=== PATIENT | female | born 1965 | race African-American/Black ===

== ENCOUNTER 2022-05-12 14:49 | Inpatient (IN) | payer MEDICAID ==
[~2022-05-12] VITALS: Ht 165.1 cm; Wt 57.6 kg
[2022-05-12] MEDS: ACETAMINOPHEN 325MG TABLET PO STA ×2 (16:02→16:28)
[2022-05-12] MEDS ORDERED: SODIUM CHLORIDE 0.9% 1000ML BAG (SEPSIS BOLUS) IV ONE (16:15)
[2022-05-12] MEDS ORDERED: CEFTRIAXONE 1 G PREMIX 50 ML IV ONE (16:15)
[2022-05-12 16:34] LABS: HEMATOCRIT. 25.6 % (36.0-48.0); HEMOGLOBIN. 7.9 g/dL (12.0-16.0); MEAN CORPUSCULAR HEMOGLOBIN 29.2 pg (28.0-32.0); MEAN CORPUSCULAR VOLUME 94.3 fL (81.0-99.0); MEAN PLATELET VOLUME 8.5 fl (7.4-10.4); PLATELET 152 x1000/uL (130-400); RED BLOOD CELL COUNT 2.72 mill/uL (4.2-5.4)
[2022-05-12] MEDS ORDERED: NOREPINEPHRINE 8 MG in DEXT 5% WATER 242 ML IV STA ×3 (16:36→17:17)
[2022-05-12 16:45] LABS: CHLORIDE 118 mEq/L (98-107)
[2022-05-12] MEDS ORDERED: IBUPROFEN 400MG TABLET PO ONE (17:00)
[2022-05-12 17:10] LABS: D-DIMER 8.99 mg/L FEU (<0.50); INR 1.6; PROTHROMBIN TIME 16.7 sec (9.6-11.0)
[2022-05-12 17:49] LABS: PLATELET ESTIMATE NORMAL
[2022-05-12] MEDS ORDERED: POTASSIUM CHLORIDE INJ 40 MEQ in DEXT 5% WATER 250 ML IV ONE (18:30)
[2022-05-12] MEDS ORDERED: PIPERACILLIN/TAZOBACTAM 3.375GM/50ML PREMIX IV ONE (18:30)
[2022-05-12] MEDS ORDERED: VANCOMYCIN 1G PREMIX 200 ML IV SCH ×2 (18:30→20:00)
[2022-05-12] MEDS ORDERED: KCL 20MEQ/100ML X 2 FOR TOTAL KCL 40MEQ/200ML IV SCH (18:45)
[2022-05-12] MEDS ORDERED: PIPERACILLIN/TAZ 3.375G PREMIX 50 ML IV NR (18:45)
[2022-05-12] MEDS ORDERED: LORAZEPAM 2MG/ML CPJ IV NR (19:30)
[2022-05-12] MEDS ORDERED: DOCUSATE SODIUM 100MG CAPSULE PO PRN (19:45)
[2022-05-12] MEDS ORDERED: NALOXONE HCL 0.4MG/ML VIAL IV PRN (19:45)
[2022-05-12] MEDS ORDERED: LORAZEPAM 0.5MG TABLET PO PRN (19:45)
[2022-05-12] MEDS ORDERED: POTASSIUM CHLORIDE 20MEQ TABLET SR PO NR (19:45)
[2022-05-12] MEDS ORDERED: KCL 20MEQ/100ML PREMIX 100 ML IV NR (19:45)
[2022-05-12] MEDS ORDERED: IPRATROPIUM/ALBUTEROL 0.5-3(2.5)MG/3ML NEB NEB PRN (19:45)
[2022-05-12] MEDS ORDERED: NITROGLYCERIN 0.4MG TABLET SL SL PRN (19:45)
[2022-05-12] MEDS ORDERED: ONDANSETRON HCL 4MG/2ML INJ IV PRN (19:45)
[2022-05-12] MEDS ORDERED: ACETAMINOPHEN 325MG TABLET PO PRN ×2 (19:45)
[2022-05-12] MEDS ORDERED: MAGNESIUM/ALUMINUM HYDROXIDE/SIMETHICONE 30ML UDC PO PRN (19:45)
[2022-05-12] MEDS ORDERED: CLONIDINE 0.1MG TABLET PO PRN (19:45)
[2022-05-12] MEDS ORDERED: PIPERACILLIN/TAZ 3.375G PREMIX 50 ML IV SCH (19:45)
[2022-05-12] MEDS ORDERED: GUAIFENESIN 200MG/10ML SUGAR FREE UDC PO PRN (19:45)
[2022-05-12] MEDS ORDERED: ENOXAPARIN 40MG/0.4ML SYR SUBCUT SCH (20:00)
[2022-05-12] MEDS ORDERED: IOHEXOL-350 100 ML BOTTLE ONE (20:01)
[2022-05-12 20:08] LABS: ETHANOL BLOOD < 10 mg/dL; HDL CHOLESTEROL 32 mg/dL (40-59); T4 FREE 0.97 ng/dL (0.76-1.46); TOTAL IRON BINDING CAPACITY 95 ug/dL (250-450)
[2022-05-12 20:14] LABS: LDL CHOLESTEROL 2 mg/dL (5-100)
[2022-05-12 20:44] LABS: VITAMIN B12 SERUM > 2000.0 pg/mL (211-911)
[2022-05-12] MEDS: ASCORBIC ACID 500 MG TABLET PO SCH (21:02)
[2022-05-12] MEDS: SODIUM CHLORIDE 0.9% 1,000 ML IV SCH (21:05)
[2022-05-12] MEDS: PANTOPRAZOLE SODIUM 40 MG/VIAL IV SCH (21:06)
[2022-05-12 22:38] LABS: CREATINE KINASE MB FRACTION 1.1 ng/mL (0.5-3.6)
[2022-05-12] MEDS: ZOLPIDEM TARTRATE 5MG TABLET PO PRN (23:05)
[2022-05-13] VITALS (50 sets, daily range): BP systolic 51–172; BP diastolic 20–108
[2022-05-13] MEDS ORDERED: NOREPINEPHRINE 8 MG in DEXT 5% WATER 242 ML IV PRN ×2 (02:00→22:15)
[2022-05-13] MEDS ORDERED: PIPERACILLIN/TAZOBACTAM 3.375G in DEXT 5% WATER 50ML IV SCH (06:00)
[2022-05-13 06:37] LABS: HEMATOCRIT. 25.9 % (36.0-48.0); HEMOGLOBIN. 8.3 g/dL (12.0-16.0); MEAN CORPUSCULAR HEMOGLOBIN 29.5 pg (28.0-32.0); MEAN CORPUSCULAR VOLUME 91.8 fL (81.0-99.0); MEAN PLATELET VOLUME 8.5 fl (7.4-10.4); PLATELET 163 x1000/uL (130-400); RED BLOOD CELL COUNT 2.82 mill/uL (4.2-5.4); RED CELL DISTRIBUTION WIDTH 14.7 % (11.6-14.6)
[2022-05-13 06:44] LABS: CHLORIDE 119 mEq/L (98-107)
[2022-05-13 06:53] LABS: CREATINE KINASE 57 IU/L (26-192); CREATINE KINASE MB FRACTION < 1.0 ng/mL (0.5-3.6); PHOSPHORUS 2.6 mg/dL (2.5-4.9)
[2022-05-13 08:26] LABS: CLARITY URINE CLOUDY (CLEAR); COLOR URINE YELLOW (YELLOW); KETONES URINE NEGATIVE (NEGATIVE); LEUKOCYTE ESTERASE URINE NEGATIVE (NEGATIVE); NITRITE URINE NEGATIVE (NEGATIVE); OCCULT BLOOD URINE 1+ (NEGATIVE); PH URINE 5.5 (4.5-8.0); PROTEIN URINE TRACE (NEGATIVE); SPECIFIC GRAVITY URINE 1.028 (1.005-1.030)
[2022-05-13 08:35] LABS: *AMPHETAMINES SCREEN URINE NEGATIVE (NEGATIVE); *BARBITURATES SCREEN URINE NEGATIVE (NEGATIVE); *BENZODIAZEPINES SCREEN URINE NEGATIVE (NEGATIVE); *COCAINE SCREEN URINE NEGATIVE (NEGATIVE); CANNABINOID URINE SCREEN NEGATIVE (NEGATIVE); METHADONE URINE SCREEN NEGATIVE (NEGATIVE); OPIATES URINE SCREEN NEGATIVE (NEGATIVE); PHENCYCLIDINE URINE SCREEN NEGATIVE (NEGATIVE)
[2022-05-13 08:43] LABS: PLATELET ESTIMATE NORMAL
[2022-05-13] MEDS ORDERED: KCL 20MEQ/100ML PREMIX 100 ML IV NR ×2 (09:00→12:00)
[2022-05-13] MEDS: ZINC SULFATE 220 MG ( 50 ) CAPSULE PO SCH (09:56)
[2022-05-13] MEDS: CHOLECALCIFEROL (D3) 1000 UNIT TABLET PO SCH (09:56)
[2022-05-13] MEDS: ASCORBIC ACID 500 MG TABLET PO SCH ×2 (09:56→20:26)
[2022-05-13] MEDS: KETOROLAC 15MG/ML VIAL IV PRN (09:57)
[2022-05-13] MEDS: SODIUM CHLORIDE 0.9% 1,000 ML IV SCH ×3 (09:58→21:30)
[2022-05-13] MEDS: POTASSIUM CHLORIDE 20MEQ TABLET SR PO SCH (10:33)
[2022-05-13] MEDS ORDERED: LIDOCAINE HCL/PF 1% 10 MG/ML 5ML VIAL ONE (11:09)
[2022-05-13] MEDS ORDERED: MAGNESIUM 1 G PREMIX 100 ML IV NR (11:30)
[2022-05-13] MEDS ORDERED: LIDOCAINE HCL/PF 1% 2ML VIAL ONE (12:00)
[2022-05-13] MEDS: FOLIC ACID 1MG TABLET PO SCH (12:43)
[2022-05-13] MEDS: VANCOMYCIN 750 MG in DEXT 5% WATER 250 ML IV SCH (12:43)
[2022-05-13] MEDS: PIPERACILLIN/TAZOBACTAM 3.375 G in DEXTROSE 5% WATER 50 ML IV SCH ×2 (14:21→21:51)
[2022-05-13] MEDS: ENOXAPARIN 30MG/0.3ML SYR SUBCUT SCH (14:30)
[2022-05-13 15:12] LABS: BG BASE EXCESS -12.2 mmol/L (-2.0-2.0); BG CARBOXYHEMOGLOBIN 0.6 % (0.5-1.5); BG DEOXYHEMOGLOBIN 3.6 % (0.0-5.0); BG FRACTION INSPIRED OXYGEN 21; BG HCO3 ACT 12.2 mmol/L (22.0-26.0); BG METHEMOGLOBIN 0.3 % (0.0-1.5); BG OXYGEN SATURATION 96.4 % (92.0-98.5); BG OXYHEMOGLOBIN 95.5 % (94.0-97.0); BG PCO2 22.9 mmHg (35.0-45.0); BG PH 7.343 (7.350-7.450); BG PO2 110.6 mmHg (75.0-100.0); BG SAMPLE SITE RIGHT RADIAL; BG TOTAL HEMOGLOBIN 7.7 g/dL (12.0-18.0); BG VENT MODE ROOM AIR
[2022-05-13] MEDS ORDERED: OXYC-100 PO (17:00)
[2022-05-13] MEDS ORDERED: CYM20 PO (17:00)
[2022-05-13] MEDS ORDERED: VIT1TAB.9 PO (17:00)
[2022-05-13] MEDS ORDERED: HYDR500C18 PO (17:00)
[2022-05-13] MEDS ORDERED: ZOLP6.252 PO (17:00)
[2022-05-13] MEDS ORDERED: NEOFA GT (17:00)
[2022-05-13] MEDS ORDERED: VANCOMYCIN 1G PREMIX 200 ML IV SCH (18:00)
[2022-05-13] MEDS: PANTOPRAZOLE SODIUM 40 MG/VIAL IV SCH (20:25)
[2022-05-13] MEDS: SODIUM BICARBONATE 100 MEQ in SODIUM CHLORIDE 0.45% 1,000 ML IV SCH (23:18)
[2022-05-14] VITALS (40 sets, daily range): BP systolic 94–143; BP diastolic 46–84
[2022-05-14] MEDS: ZOLPIDEM TARTRATE 5MG TABLET PO PRN (02:47)
[2022-05-14 05:06] LABS: CHLORIDE 122 mEq/L (98-107)
[2022-05-14] MEDS: VANCOMYCIN 750 MG in DEXT 5% WATER 250 ML IV SCH ×2 (05:12→05:13)
[2022-05-14 05:16] LABS: PHOSPHORUS 2.7 mg/dL (2.5-4.9); VANCOMYCIN TROUGH 13.8 ug/mL (5.0-10.0)
[2022-05-14] MEDS: PIPERACILLIN/TAZOBACTAM 3.375 G in DEXTROSE 5% WATER 50 ML IV SCH ×3 (06:50→21:46)
[2022-05-14] MEDS: CHOLECALCIFEROL (D3) 1000 UNIT TABLET PO SCH (08:05)
[2022-05-14] MEDS: FOLIC ACID 1MG TABLET PO SCH (08:06)
[2022-05-14] MEDS: ASCORBIC ACID 500 MG TABLET PO SCH ×2 (08:06→21:45)
[2022-05-14] MEDS: ZINC SULFATE 220 MG ( 50 ) CAPSULE PO SCH (08:06)
[2022-05-14] MEDS: POTASSIUM CHLORIDE 20MEQ TABLET SR PO SCH (08:06)
[2022-05-14] MEDS: TRAMADOL 50MG TABLET PO PRN (08:06)
[2022-05-14 09:27] LABS: BASOPHILS % 0.1 % (0.0-2.0); EOSINOPHILS % 0.7 % (0.0-5.0); HEMATOCRIT. 23.3 % (36.0-48.0); HEMOGLOBIN. 7.4 g/dL (12.0-16.0); LYMPHOCYTES % 8.5 % (20.0-50.0); MEAN CORPUSCULAR HEMOGLOBIN 28.8 pg (28.0-32.0); MEAN CORPUSCULAR VOLUME 90.6 fL (81.0-99.0); MEAN PLATELET VOLUME 8.2 fl (7.4-10.4); MONOCYTES % 2.8 % (2.0-8.0); NEUTROPHILS % 87.9 % (40.0-76.0); PLATELET 117 x1000/uL (130-400); RED BLOOD CELL COUNT 2.57 mill/uL (4.2-5.4)
[2022-05-14] MEDS: KETOROLAC 15MG/ML VIAL IV PRN (11:41)
[2022-05-14] MEDS: ARIPIPRAZOLE 5MG TABLET PO SCH (12:30)
[2022-05-14] MEDS: ZIPRASIDONE HCL 20MG CAPSULE PO SCH ×2 (13:01→21:49)
[2022-05-14] MEDS: DULOXETINE HCL 60MG DR CAPSULE PO SCH (13:01)
[2022-05-14] MEDS: ENOXAPARIN 30MG/0.3ML SYR SUBCUT SCH (13:47)
[2022-05-14] MEDS: SODIUM BICARBONATE 100 MEQ in SODIUM CHLORIDE 0.45% 1,000 ML IV SCH (20:06)
[2022-05-14] MEDS: PANTOPRAZOLE SODIUM 40 MG/VIAL IV SCH (21:45)
[2022-05-15 00:10] VITALS: BP 125/73
[2022-05-15] MEDS: VANCOMYCIN 750 MG in DEXT 5% WATER 250 ML IV SCH ×2 (00:31→17:51)
[2022-05-15] MEDS: KETOROLAC 15MG/ML VIAL IV PRN (00:42)
[2022-05-15 04:00] VITALS: BP 131/68
[2022-05-15] MEDS: PIPERACILLIN/TAZOBACTAM 3.375 G in DEXTROSE 5% WATER 50 ML IV SCH ×3 (05:57→22:16)
[2022-05-15 08:00] VITALS: BP 136/74
[2022-05-15] MEDS: ASCORBIC ACID 500 MG TABLET PO SCH ×2 (09:23→22:16)
[2022-05-15] MEDS: CHOLECALCIFEROL (D3) 1000 UNIT TABLET PO SCH (09:23)
[2022-05-15] MEDS: ARIPIPRAZOLE 5MG TABLET PO SCH (09:23)
[2022-05-15] MEDS: TRAMADOL 50MG TABLET PO PRN ×2 (09:24→22:48)
[2022-05-15] MEDS: ZINC SULFATE 220 MG ( 50 ) CAPSULE PO SCH (09:32)
[2022-05-15] MEDS: POTASSIUM CHLORIDE 20MEQ TABLET SR PO SCH (09:32)
[2022-05-15] MEDS: ZIPRASIDONE HCL 20MG CAPSULE PO SCH ×2 (09:32→22:16)
[2022-05-15] MEDS: FOLIC ACID 1MG TABLET PO SCH (09:40)
[2022-05-15] MEDS: DULOXETINE HCL 60MG DR CAPSULE PO SCH (09:40)
[2022-05-15 12:00] VITALS: BP 144/69
[2022-05-15] MEDS: ENOXAPARIN 30MG/0.3ML SYR SUBCUT SCH (13:15)
[2022-05-15 16:00] VITALS: BP 143/82
[2022-05-15 20:00] VITALS: BP 140/75
[2022-05-15] MEDS: PANTOPRAZOLE SODIUM 40 MG/VIAL IV SCH (22:16)
[2022-05-15] MEDS: SODIUM BICARBONATE 100 MEQ in SODIUM CHLORIDE 0.45% 1,000 ML IV SCH (22:16)
[2022-05-16] VITALS: BP 151/64
[2022-05-16 04:00] VITALS: BP 125/62
[2022-05-16] MEDS: PIPERACILLIN/TAZOBACTAM 3.375 G in DEXTROSE 5% WATER 50 ML IV SCH (05:04)
[2022-05-16] MEDS: TRAMADOL 50MG TABLET PO PRN ×3 (05:04→21:31)
[2022-05-16 07:00] LABS: BASOPHILS % 0.5 % (0.0-2.0); EOSINOPHILS % 2.2 % (0.0-5.0); HEMATOCRIT. 22.9 % (36.0-48.0); HEMOGLOBIN. 7.3 g/dL (12.0-16.0); LYMPHOCYTES % 23.7 % (20.0-50.0); MEAN CORPUSCULAR HEMOGLOBIN 29.1 pg (28.0-32.0); MEAN CORPUSCULAR VOLUME 90.8 fL (81.0-99.0); MEAN PLATELET VOLUME 9.1 fl (7.4-10.4); MONOCYTES % 8.1 % (2.0-8.0); NEUTROPHILS % 65.5 % (40.0-76.0); PLATELET 87 x1000/uL (130-400); RED BLOOD CELL COUNT 2.52 mill/uL (4.2-5.4); RED CELL DISTRIBUTION WIDTH 14.5 % (11.6-14.6)
[2022-05-16 07:22] LABS: CHLORIDE 120 mEq/L (98-107); PHOSPHORUS 2.9 mg/dL (2.5-4.9)
[2022-05-16 08:00] VITALS: BP 130/63
[2022-05-16] MEDS: POTASSIUM CHLORIDE 20MEQ TABLET SR PO SCH (08:42)
[2022-05-16] MEDS: ZIPRASIDONE HCL 20MG CAPSULE PO SCH ×2 (08:42→21:30)
[2022-05-16] MEDS: ZINC SULFATE 220 MG ( 50 ) CAPSULE PO SCH (08:42)
[2022-05-16] MEDS: ASCORBIC ACID 500 MG TABLET PO SCH ×2 (08:42→21:30)
[2022-05-16] MEDS: FOLIC ACID 1MG TABLET PO SCH (08:42)
[2022-05-16] MEDS: ARIPIPRAZOLE 5MG TABLET PO SCH (08:42)
[2022-05-16] MEDS: CHOLECALCIFEROL (D3) 1000 UNIT TABLET PO SCH (08:43)
[2022-05-16] MEDS: DULOXETINE HCL 60MG DR CAPSULE PO SCH (08:43)
[2022-05-16] MEDS ORDERED: POTASSIUM CHLORIDE 20MEQ/PACKET PO NR (09:30)
[2022-05-16] MEDS: LEVOFLOXACIN 500MG TABLET PO SCH (10:12)
[2022-05-16] MEDS ORDERED: MAGNESIUM 2 G PREMIX 50 ML IV SCH (11:00)
[2022-05-16 12:00] VITALS: BP 137/67
[2022-05-16] MEDS: ENOXAPARIN 30MG/0.3ML SYR SUBCUT SCH (14:00)
[2022-05-16 16:00] VITALS: BP 137/62
[2022-05-16 20:00] VITALS: BP 99/67
[2022-05-16] MEDS: PANTOPRAZOLE SODIUM 40 MG/VIAL IV SCH (21:00)
[2022-05-17] VITALS: BP 103/65
[2022-05-17 04:00] VITALS: BP 110/60
[2022-05-17] MEDS: TRAMADOL 50MG TABLET PO PRN ×2 (04:27→10:23)
[2022-05-17 08:00] VITALS: BP 116/72
[2022-05-17] MEDS: ARIPIPRAZOLE 5MG TABLET PO SCH (09:43)
[2022-05-17] MEDS: ASCORBIC ACID 500 MG TABLET PO SCH (09:43)
[2022-05-17] MEDS: FOLIC ACID 1MG TABLET PO SCH (09:43)
[2022-05-17] MEDS: ZINC SULFATE 220 MG ( 50 ) CAPSULE PO SCH (09:43)
[2022-05-17] MEDS: CHOLECALCIFEROL (D3) 1000 UNIT TABLET PO SCH (09:43)
[2022-05-17] MEDS: DULOXETINE HCL 60MG DR CAPSULE PO SCH (09:43)
[2022-05-17] MEDS: ZIPRASIDONE HCL 20MG CAPSULE PO SCH (09:43)
[2022-05-17] MEDS: POTASSIUM CHLORIDE 20MEQ TABLET SR PO SCH (09:43)
[2022-05-17 12:00] VITALS: BP 145/71
[2022-05-17] MEDS ORDERED: LEVO500T90 MT (13:42)
[2022-05-17] MEDS: LEVOFLOXACIN 500MG TABLET PO SCH (14:35)
[2022-05-17] MEDS: ENOXAPARIN 30MG/0.3ML SYR SUBCUT SCH (14:35)
[2022-05-17 15:24] VITALS: BP 140/69
== END 2022-05-17 16:50 | disposition home or self-care (01) | DRG 720 ==
LOC: ER 14:49 → MICUSO 18:30 → CVICU 05-13 08:59 → 6WST 05-14 23:57
PROVIDERS: ADMIT Internal Medicine; ATTEND Internal Medicine
DX: A41.9 Sepsis, unspecified organism (principal); R65.21 Severe sepsis with septic shock; E43 Unspecified severe protein-calorie malnutrition; D57.00 Hb-SS disease with crisis, unspecified; J18.9 Pneumonia, unspecified organism; J98.2 Interstitial emphysema; E83.51 Hypocalcemia; F43.10 Post-traumatic stress disorder, unspecified; E87.6 Hypokalemia; E83.42 Hypomagnesemia; M79.7 Fibromyalgia; Z20.822 Contact with and (suspected) exposure to COVID-19; K76.0 Fatty (change of) liver, not elsewhere classified; R45.851 Suicidal ideations; F31.9 Bipolar disorder, unspecified; Z79.899 Other long term (current) drug therapy; Z28.310 Unvaccinated for COVID-19; N28.9 Disorder of kidney and ureter, unspecified; N39.0 Urinary tract infection, site not specified
CPT/HCPCS: 36415; 36600; 71045; 71275; 74176; 80048; 80053; 80061; 80076; 80202; 80305; 80320; 81003; 82248; 82375; 82378; 82550; 82553; 82607; 82746; 82805; 83036; 83540; 83550; 83605; 83615; 83735; 84100; 84145; 84439; 84443; 84484; 85025; 85379; 85660; 86850; 86880; 86900; 87077; 87186; 87426; 93005; 93306; 93970; 97162; 99291; C9113; C9803; J0696; J1650; J1885; J2060; J2405; J2543; J3370; J3475; J3480; J3490; J7030; J7042; J7060; Q9967; A4315; G0480